=== PATIENT | female | born 1980 | race Caucasian/White ===

== ENCOUNTER 2016-06-24 22:36 | Emergency (ER) | payer OTHER ==
[~2016-06-24 22:36] MED LIST: CEFTIN500 MG PO; IRON325 M1 PO; LEVAQUIN750 MG PO; NORCO 5-325 TA1 EACH PO; PHENERGAN 25 MG25 M1 PO; THERAGRAN M TAB1 EA PO; TYLENOL 325MG325 MG PO; ZYVOX 600 MG T600 MG PO
== END 2016-06-25 02:06 | disposition left against medical advice (07) ==
LOC: ER1 22:36
DX: Z53.21 Procedure and treatment not carried out due to patient leaving prior to being seen by health care provider (principal)

== ENCOUNTER 2016-09-16 15:22 | Emergency (ER) | payer OTHER | END 2016-09-16 18:00 | disposition home or self-care (01) | LOC: ER1 15:22 | DX: T36.4X5A Adverse effect of tetracyclines, initial encounter (principal); Z88.1 Allergy status to other antibiotic agents; X58.XXXA Exposure to other specified factors, initial encounter | CPT/HCPCS: 96372; 99283; J2930 ==